=== PATIENT | male | born 1955 | race Caucasian/White ===

== ENCOUNTER 2023-08-27 13:48 | Emergency (ER) | payer MEDICARE, SELFPAY ==
[2023-08-27] MEDS ORDERED: Lidocaine 1% (PF) 30 ML VIAL ONE (14:20)
[2023-08-27] MEDS ORDERED: Cephalexin 500 MG CAP ONE (15:10)
== END 2023-08-27 15:26 | disposition home or self-care (01) ==
LOC: MADERS 13:48
DX: S67.190A Crushing injury of right index finger, initial encounter (principal); S62.630B Displaced fracture of distal phalanx of right index finger, initial encounter for open fracture; I10 Essential (primary) hypertension; W23.0XXA Caught, crushed, jammed, or pinched between moving objects, initial encounter
CPT/HCPCS: 64450; J2001